=== PATIENT | female | born 1940 | race Caucasian/White ===

== ENCOUNTER 2017-11-14 12:41 | Emergency (ER) | payer OTHER ==
[~2017-11-14] VITALS: Ht 167.6 cm; Wt 81.2 kg
[~2017-11-14 12:41] MED LIST: ACETAMINOPHEN-1 EAC1 PO; AMBIEN 10 MG TA10 MG; AMBIEN 5 MG TABL5 M1 PO; BUSPAR 5 MG TABL5 M1; BUSPAR PO; BUSPAR15 MG; BUSPIRONE HCL10 MG PO; CARVEDILOL12.5 MG PO; COREG25 MG PO; COZAAR 25 MG TA25 M1 PO; DIOVAN HCT 3201 EAC1 PO; DIOVAN HCT 3201 EACH PO; DIOVAN320 MG; FLEXERIL PO; HYDROCODON-ACE1 EAC7 PO; HYDROCODON-ACE1 EACH PO; HYDROCODONE-AP1 EA11 PO; HYDROCODONE-AP1 EAC6 PO; IBUPROFEN 800800 M1 PO; KEFLEX500 MG PO; KLOR-CON 1010 MEQ PO; NAPROSYN375 MG PO; NAPROSYN500 MG PO; NORCO 5-325 TA1 EAC1 PO; NORCO 5-325 TA1 EACH PO; NORFLEX100 MG PO; ONDANSETRON HCL4 M2 PO; PERCOCET 10-321 EACH PO; PERCOCET 5-3251 EACH PO; PERCOCET 7.5-31 EACH PO; PERCOCET PO; PREDNISONE 20 M20 M1 PO; PREDNISONE50 MG PO; SKELAXIN 800 M800 M1 PO; SULAR PO; SULAR25.5 MG; SULAR34 MG; SULAR34 MG PO; TRAMADOL 50 MG50 MG PO; ULTRAM 50MG TAB50 MG PO; XANAX 0.25 MG0.25 MG PO; XANAX 0.5 MG0.5 MG PO; ZOFRAN ODT4 MG PO
[2017-11-14 13:16] LABS: ABSOLUTE LYMPHOCYTES 0.9 thou/uL (0.8-5.3); ABSOLUTE MONOCYTES 0.8 thou/uL (0.0-1.2); ABSOLUTE NEUTROPHILS 6.5 thou/uL (1.6-8.1); BASOPHILS 0.4 %; EOSINOPHILS 0.4 %; HEMATOCRIT 37.2 % (37.0-47.0); LYMPHOCYTES 10.8 %; MCH 29.4 pg (26.0-34.0); MCHC 32.3 g/dL (28.0-37.0); MONOCYTES 9.5 %; MPV 8.4 fl. (7.2-11.1); NUCLEATED RBCS 0 /100WBC; PLATELET COUNT* 308 thou/uL (150-400); POLYS 78.9 %; RBC 4.08 mil/uL (4.20-5.00); RDW-CV 15.5 % (10.5-14.5); WBC 8.3 thou/uL (4.0-11.0)
[2017-11-14 13:25] LABS: INR 1.2; PROTIME 11.3 Seconds (9.20-11.50)
[2017-11-14 13:46] LABS: ANION GAP 5 mmol/L (7-16); BUN 23 mg/dL (7-18); CALCIUM 9.2 mg/dL (8.5-10.1); CHLORIDE 102 mmol/L (98-107); CO2 26 mmol/L (21-32); CREATININE 0.6 mg/dL (0.6-1.3); GLUCOSE 104 mg/dL (70-99); SODIUM 133 mmol/L (136-145)
[2017-11-14 13:50] LABS: POTASSIUM 2.8 mmol/L (3.5-5.1)
[2017-11-14 13:50] LABS: URINE BILIRUBIN NEGATIVE (Negative); URINE BLOOD NEGATIVE (Negative); URINE CLARITY CLEAR; URINE COLOR YELLOW; URINE GLUCOSE-RANDOM NEGATIVE (Negative); URINE KETONES NEGATIVE (Negative); URINE LEUKOCYTES-REFLEX NEGATIVE (Negative); URINE NITRITE-REFLEX NEGATIVE (Negative); URINE PROTEIN TRACE (Negative)
[2017-11-14 13:56] LABS: ALBUMIN 2.9 g/dL (3.4-5.0); ALKALINE PHOSPHATASE 45 U/L (46-116); LIPASE 68 U/L (73-393); NT-PRO BRAIN NAT PEPTIDE 88 pg/mL (<300); SGOT 22 U/L (15-37); SGPT 23 U/L (30-65); TOTAL BILIRUBIN 0.3 mg/dL (<0.1-1.0); TOTAL PROTEIN 7.3 g/dL (6.4-8.2); TROPONIN-I LEVEL <0.06 ng/mL (<0.06)
[2017-11-14 14:12] LABS: INFLUENZA A ANTIGEN None Detected (None Detect); INFLUENZA B ANTIGEN None Detected (None Detect)
[2017-11-14 14:57] VITALS: BP 151/97
[2017-11-14] MEDS ORDERED: POTASSIUM20 PO (15:20)
--- NOTE | 2017-11-14 15:53 | EKG ---
[place] [address] ELECTROCARDIOGRAM REPORT Name: CHLOE CURRY CHAVEZ Room: [facility]#: [id number] Admission: 11/14/17 Attend Phys: Discharge: 11/14/17 Date of : 44 Report #: [id number] THIS REPORT FOR: //name// [facility] ED Test Date: 2017-11-14 Test Time: 12:54:16 Pat Name: CHLOE CURRY Department: Room: Gender: F Bag Loader: MS : 1940 Requested By: Rome Villarreal Order Number: [id number] MD: Palomo Larson Measurements Intervals [place] Rate: 96 P: 42 FL: 187 QRS: -18 QRSD: 112 T: 106 QT: 361 QTc: 457 Interpretive Statements Sinus rhythm LVH with IVCD and secondary repol abnrm Inferior infarct, old Compared to ECG 09/30/2016 16:15:31 Intraventricular conduction delay now present Left ventricular hypertrophy now present Early repolarization now present Myocardial infarct finding now present Electronically Signed On 11-14-2017 15:53:31 SHEET HANGER by Palomo Larson [email or web address] <ELECTRONICALLY SIGNED> By: Palomo Larson MD, FAC 11/14/17 1553 1254 [id number] Palomo Larson MD, [facility] /EPI
== END 2017-11-14 15:32 | disposition home or self-care (01) ==
LOC: M.ERS 12:41
PROVIDERS: Emergency Medicine
DX: R41.0 Disorientation, unspecified (principal); I10 Essential (primary) hypertension; M19.90 Unspecified osteoarthritis, unspecified site; Z98.890 Other specified postprocedural states; Z96.641 Presence of right artificial hip joint; Z88.8 Allergy status to other drugs, medicaments and biological substances

== ENCOUNTER 2018-02-15 16:14 | Emergency (ER) | payer OTHER ==
[~2018-02-15] VITALS: Ht 170.2 cm; Wt 82.6 kg
[~2018-02-15 16:14] MED LIST changes: +POTASSIUM20 PO
[2018-02-15 17:36] LABS: URINE BILIRUBIN NEGATIVE (Negative); URINE BLOOD NEGATIVE (Negative); URINE CLARITY CLEAR; URINE COLOR YELLOW; URINE GLUCOSE-RANDOM NEGATIVE (Negative); URINE KETONES NEGATIVE (Negative); URINE LEUKOCYTES-REFLEX NEGATIVE (Negative); URINE NITRITE-REFLEX POSITIVE (Negative); URINE PROTEIN NEGATIVE (Negative); URINE UROBILINOGEN 0.2 E.U./dl (0.2-1.0)
[2018-02-15 17:43] LABS: CASTS None Seen /LPF (None Seen); CRYSTALS None Seen /LPF (None Seen); SQUAMOUS 4-10 Moderate /LPF (0-3); URINE RBC 0-2 Rare /HPF (0-2); URINE WBC-REFLEX 0-5 Rare /HPF (0-5)
[2018-02-15] MEDS ORDERED: VALSARTAN-HCTZ1 EAC1 PO (17:52)
[2018-02-15] MEDS ORDERED: NEURONTIN 300300 M1 PO (17:52)
[2018-02-15] MEDS ORDERED: TRAMADOL 50 MG50 MG PO ×2 (17:53→18:52)
[2018-02-15] MEDS ORDERED: MIRALAX17 GM PO (17:54)
[2018-02-15] MEDS ORDERED: CIPRO250 M2 PO (18:52)
[2018-02-15 19:38] VITALS: BP 145/90
== END 2018-02-15 19:40 | disposition home or self-care (01) ==
LOC: M.ERS 16:14
PROVIDERS: Nurse Practitioner Family
DX: M54.41 Lumbago with sciatica, right side (principal); M25.551 Pain in right hip; N39.0 Urinary tract infection, site not specified; I10 Essential (primary) hypertension; G89.29 Other chronic pain; M19.90 Unspecified osteoarthritis, unspecified site; Z88.8 Allergy status to other drugs, medicaments and biological substances

== ENCOUNTER 2018-02-15 21:15 | Inpatient (IN) | payer OTHER ==
[~2018-02-15] VITALS: Ht 170.2 cm; Wt 88.3 kg
[~2018-02-15 21:15] MED LIST changes: +CIPRO250 M2 PO; +MIRALAX17 GM PO; +NEURONTIN 300300 M1 PO; +VALSARTAN-HCTZ1 EAC1 PO
[2018-02-15 21:37] VITALS: BP 182/116
[2018-02-15 22:23] LABS: HEMATOCRIT 38.1 % (37.0-47.0); HEMOGLOBIN 12.2 gm/dL (12.0-15.0); MCH 27.8 pg (26.0-34.0); MCHC 32.1 g/dL (28.0-37.0); MCV 86.4 fL (80.0-100.0); MPV 7.9 fl. (7.2-11.1); NUCLEATED RBCS 0 /100WBC; PLATELET COUNT* 405 thou/uL (150-400); RDW-CV 16.7 % (10.5-14.5); WBC 15.8 thou/uL (4.0-11.0)
[2018-02-15 22:36] LABS: CALCIUM 9.4 mg/dL (8.5-10.1); CREATININE 0.7 mg/dL (0.6-1.3); POTASSIUM 3.2 mmol/L (3.5-5.1)
[2018-02-15 22:40] LABS: ALBUMIN 2.9 g/dL (3.4-5.0); TOTAL BILIRUBIN 0.2 mg/dL (<0.1-1.0); TOTAL PROTEIN 7.6 g/dL (6.4-8.2)
[2018-02-15 23:25] VITALS: BP 181/77
[2018-02-15 23:26] VITALS: BP 168/102
[2018-02-16 00:09] LABS: ABSOLUTE EOSINOPHILS 0.2 thou/uL (0.0-0.7); ABSOLUTE LYMPHOCYTES 1.7 thou/uL (0.8-5.3); ABSOLUTE MONOCYTES 0.5 thou/uL (0.0-1.2); ABSOLUTE NEUTROPHILS 13.4 thou/uL (1.6-8.1); ANISOCYTOSIS Occasional; HYPOCHROMASIA 1+; LARGE PLATELETS OCCASIONAL; PLATELET ESTIMATE INCREASED
[2018-02-16 00:10] LABS: TOXIC GRANULATION 1+
[2018-02-16 01:11] LABS: URINE BILIRUBIN NEGATIVE (Negative); URINE BLOOD NEGATIVE (Negative); URINE CLARITY CLEAR; URINE COLOR YELLOW; URINE GLUCOSE-RANDOM NEGATIVE (Negative); URINE KETONES NEGATIVE (Negative); URINE LEUKOCYTES-REFLEX NEGATIVE (Negative); URINE PROTEIN NEGATIVE (Negative); URINE UROBILINOGEN 0.2 E.U./dl (0.2-1.0)
[2018-02-16 01:13] LABS: URINE NITRITE-REFLEX POSITIVE (Negative)
--- NOTE | 2018-02-16 01:13 | NUR ---
ASSUMED CARE OF PT AT 2315. PTS IS ALERT AND ORIENTED BUT HER BEHAVIOR IS VERY BIZARRE. PT APPEARS VERY MANIC. PT IS CONSTANTLY ASKING FOR PAIN MEDS. EVEN I AM PUTTING IV FENTANYL IN HER IV SHE ASKS, "IS THAT ALL". SOON I LEAVE THE ROOM SHE PUTS ON THE CALL LIGHT TO ASK ME FOR MORE PAIN MEDS. PTS LEGS AND FEET ARE CONSTANTLY MOVING. PTS TONGUE IS ROLLING CONTINUOUSLY. PT STATES SHE HAS NOT BEEN ABUSING ANY DRUGS. DRUG SCREEN IS PENDING. CURRENTLY, PT IS IN HER ROOM LYING DOWN. RESPIRATIONS ARE EVEN AND NONLABORED. WILL CONTINUE TO MONITOR PT.
[2018-02-16 01:16] LABS: AMP/METHAMP Negative (Negative); BARBITURATES Negative (Negative); BENZODIAZEPINES Negative (Negative); COCAINE Negative (Negative); METHADONE Negative (Negative); OPIATES Negative (Negative); PCP Negative (Negative); THC Negative (Negative)
[2018-02-16 01:58] LABS: BACTERIA-REFLEX >30 Many /HPF (None Seen); CASTS None Seen /LPF (None Seen); CRYSTALS None Seen /LPF (None Seen); MUCUS 4-6 Moderate strn/LPF (None Seen); RENAL EPITHELIAL CELLS 0-3 Few /LPF (None Seen); SQUAMOUS 0-3 Few /LPF (0-3); URINE RBC 0-2 Rare /HPF (0-2); URINE WBC-REFLEX 0-5 Rare /HPF (0-5)
[2018-02-16 08:00] VITALS: BP 163/86
[2018-02-16 17:01] VITALS: BP 144/87
--- NOTE | 2018-02-16 18:37 | NUR ---
PATINET RESTING IN BED IN ROOM. KIMBERLY HAS MULTIPLE COMPLAINTS OF PAIN TO LOWER BACK AND LEGS, TREATED WITH IV MEDICATION, PO MEDICATIONS, ANTI ANXIETY MEDICATION, WARM K PAD, AND ICE PACKS NEEDED. GRA POSITIVE COCCI IN BLOOD CULTURE BROTH PER LAB, NOTIFIED AND VANCOMYACIN IV STARTED PER ORDERS. PAITNET UP TO BSC WITH ASSIST X1. PATIET IS VERY ANXIOUS AND CONVERSATION VARY WILDLY. PATINET EDUCATED ON THE TIMING OF PAIN AND ANXIETY MEDICATIONS, PATIENT CONTINUES TO FREQUENTLY CALL OUT. TIMING OF MEDICATION WRITTEN ON WHITE BOARD FOR PATIENT REFERENCE. SEPSIS SCREENING REEVALUATED AT 18:30, STILL NEGATIVE. MITCH DUNAWAY COMPLETED FOR PATIENT SAFETY. PAITNET IS M/S STATUS.
[2018-02-16 20:00] VITALS: BP 147/68
[2018-02-17] VITALS: BP 156/94
[2018-02-17 05:15] LABS: HEMATOCRIT 37.6 % (37.0-47.0); HEMOGLOBIN 11.8 gm/dL (12.0-15.0); MCH 27.3 pg (26.0-34.0); MCHC 31.5 g/dL (28.0-37.0); MCV 86.9 fL (80.0-100.0); MPV 8.2 fl. (7.2-11.1); RBC 4.33 mil/uL (4.20-5.00); RDW-CV 16.9 % (10.5-14.5); WBC 19.7 thou/uL (4.0-11.0)
[2018-02-17 05:44] LABS: CALCIUM 9.2 mg/dL (8.5-10.1); CREATININE 0.6 mg/dL (0.6-1.3); POTASSIUM 3.6 mmol/L (3.5-5.1)
--- NOTE | 2018-02-17 07:34 | NUR ---
PATIENT WAS ORIENTED, SHOWED SIGNS OF CONFUSION SHIFT PROGRESS. PATIENT DID NOT SHOW SIGNS OF DISTRESS. PATIENT BEGAN TO SHOW SIGNS OF WEAKNESS. FALL PRECAUTIONS IN PLACE, BED ALARM ON, HOURLY ROUNDING OBSERVED.
[2018-02-17 08:00] VITALS: BP 158/106
--- NOTE | 2018-02-17 13:54 | NUR ---
CM ASSESSMENT: Pt is A&O. Resides at home alone. Pt states that she is independent with ADLS, continues to cook, clean and drive. Pt has an older walker and cane that she can use for mobility. PT worked with Pt today and recommended Pt have a new walker. CM to fax walker order to Ra[facility] once order obtained. Hx of HH. Hx of skilled at [facility]. Pt wants HH at id, [facility] following.
[2018-02-17 15:25] VITALS: BP 141/90
--- NOTE | 2018-02-17 16:35 | 2DMMODE ---
[place] [address] 2 D/M-MODE ECHOCARDIOGRAM Name: SOFIAMAGDALENOLISA PANGKvng BYRNE Room: [facility] IN [facility]#: [id number] Admission: 02/15/18 Attend Phys: Bill Douglas Discharge: Date of : 44 Date of Service: 02/17/18 1635 Report #: [id number] THIS REPORT FOR: //name// APPROVED REPORT Study performed: 02/17/2018 15:08:33 EXAM: Comprehensive 2D, Doppler, and color-flow Echocardiogram Patient Location: In-Patient Room #: 208 Status: routine BSA: 1.98 HR: 100 bpm BP: 156/106 mmHg Rhythm: NSR Other Information Study Quality: Good Indications R/O vegetation, back pain 2D Dimensions LVEF(%): 68.87 (>50%) IVSd: 10.87 (7-11mm) LVOT Diam: 23.33 (18-24mm) LVDd: 53.25 mm PWd: 10.87 (7-11mm) Ascending Ao: 39.89 (22-36mm) LVDs: 32.52 (25-40mm) Aortic Root: 33.95 mm Chan's LVEF: 68.87 % Volumes Left Atrial Volume (Systole) LA ESV Index: 33.80 mL/m2 Aortic Valve AoV Peak Oswaldo.: 3.20 m/s AO Peak Gr.: 41.02 mmHg LVOT Max P.69 mmHg AO Mean Gr.: 23.88 mmHg LVOT Mean P.79 mmHg LVOT Max V: 1.29 m/s AO V2 VTI: 53.16 cm LVOT Mean V: 0.91 m/s VICTORIA (VTI): 1.87 cm2 LVOT V1 VTI: 23.27 cm TDI Medial E' Oswaldo.: 0.07 m/[place] [address] 2 D/M-MODE ECHOCARDIOGRAM Name: CHLOE CURRY CHAVEZ Room: [address] IN .R.#: [id number] Admission: 02/15/18 Attend Phys: Bill Douglas Discharge: Date of : 44 Date of Service: 02/17/18 1635 Report #: [id number] Lateral E' Oswaldo.: 0.09 m/s Pulmonary Valve PV Peak Oswaldo.: 1.42 m/s PV Peak Gr.: 8.04 mmHg Left Ventricle The left ventricle is normal size. There is normal LV segmental wall motion. There is normal left ventricular wall thickness. Left ventricular systolic function is normal. The left ventricular ejection fraction is within the normal range. LVEF is 65%. Transmitral Doppler flow pattern suggests impaired LV relaxation. Right Ventricle The right ventricle is normal size. The right ventricular systolic function is normal. Atria The left atrium size is normal. The right atrium size is normal. Aortic Valve Mild aortic valve sclerosis. No aortic regurgitation is present. Mild aortic stenosis. Mitral Valve There is mitral annular calcification. Trace mitral regurgitation. No evidence of mitral valve stenosis. Tricuspid Valve The tricuspid valve is normal in structure. Unable to assess PA pressure. Trace tricuspid regurgitation. Pulmonic Valve The pulmonary valve is normal in structure. There is no pulmonic valvular regurgitation. Great Vessels The aortic root is normal in size. IVC is normal in size and collapses with >50% inspiration Pericardium There is no pericardial effusion. <Conclusion> The left ventricle [place] [address] 2 D/M-MODE ECHOCARDIOGRAM Name: CHLOE CURRY Room: [address] IN [facility]#: [id number] Admission: 02/15/18 Attend Phys: Bill Douglas Discharge: Date of : 44 Date of Service: 02/17/18 1635 Report #: [id number] There is normal left ventricular wall thickness. Left ventricular systolic function is normal. The left ventricular ejection fraction is within the normal range. LVEF is 65%. Transmitral Doppler flow pattern suggests impaired LV relaxation. The right ventricle is normal size. The left atrium size is normal. Mild aortic valve sclerosis. No aortic regurgitation is present. Mild aortic stenosis. There is mitral annular calcification. Trace mitral regurgitation. No evidence of mitral valve stenosis. The tricuspid valve is normal in structure. IVC is normal in size and collapses with >50% inspiration There is no pericardial effusion. There is normal LV segmental wall motion. <ELECTRONICALLY SIGNED> By: Palomo Larson MD, FACC 02/17/18 1635 1635 1635 Palomo Larson MD, FACC /INF
--- NOTE | 2018-02-17 18:43 | NUR ---
PATIENT RESTING IN BED. PATIENT IS REQUIRING FREQUENT REORIENTATION. FREQUENT PAIN MEDICATION ADMINISTRATION. VITAL SIGNS STABLE. GRAM NEG RODS IN URINE, GRAM POS COCCI IN BLLOD. ABX ORDERED AND IV FLUIDS. SR TO ST ON MONITOR. HOURLY ROUNDING FOR PATIENT SAFETY.
[2018-02-17 20:00] VITALS: BP 159/84
[2018-02-18] VITALS (7 sets, daily range): BP systolic 129–173; BP diastolic 79–94
--- NOTE | 2018-02-18 01:10 | NUR ---
RECIEVED REPORT AND ASSUMED CARE OF PATIENT AT 1930. ASSESSMENT AND VITALS COMPLETED CHARTED, VSS. PATIENT A&OX4, EXTREMELY ANXIOUS, FORGETFUL AND CONFUSED AT TIMES. PATIENT REQUIRES FREQUENT REORIENTATION AND RELAXATION REMINDERS. PATIENT WAS STILL HIGHLY ANXIOUS DESPITES HS MEDS. ORDER OBTAINED FOR ONE TIME DOSE OF IM ZYPREXA, ADMINISTERED WITH GOOD RESULTS. PATIENT IS RESTING COMFORTABLY AT THIS TIME. RANDOM BEDSIDE O2 SAT 88% ON ROOM AIR, PATIENT PLACED ON 2L NC AND SAT IMPROVED TO 94%. GOAL IS TO HAVE PAIN AND ANXIETY RELIEF AND REST COMFORTABLY FOR THE REMAINDER OF THE SHIFT. CALL LIGHT WITHIN REACH
[2018-02-18 04:08] LABS: GLYCOHEMOGLOBIN (HGB A1C) 5.9 % (4.8-5.6)
--- NOTE | 2018-02-18 04:49 | NUR ---
PATIENT NOT PROGRESSING TOWARDS GOALS: PATIENT AWAKE AT THIS TIME AND ANXIOUS AND IMPULSIVE. PATIENT'S BED ALARM GOING OFF MULTIPLE TIMES DESPITE INSTRUCTIONS TO CALL FOR ASSISTANCE. PATIENT FORGETFUL AND CONFUSED. FALL PRECAUTIONS IN PLACE. CALL LIGHT WITHIN REACH. HOURLY ROUNDING OBSERVED.
[2018-02-18 05:46] LABS: HEMATOCRIT 37.6 % (37.0-47.0); MCH 27.5 pg (26.0-34.0); MCHC 31.9 g/dL (28.0-37.0); MCV 86.1 fL (80.0-100.0); MPV 8.2 fl. (7.2-11.1); RBC 4.37 mil/uL (4.20-5.00); RDW-CV 16.9 % (10.5-14.5); WBC 11.5 thou/uL (4.0-11.0)
[2018-02-18 06:05] LABS: ALBUMIN 2.5 g/dL (3.4-5.0); CALCIUM 9.3 mg/dL (8.5-10.1); CREATININE 0.6 mg/dL (0.6-1.3); POTASSIUM 3.4 mmol/L (3.5-5.1); TOTAL BILIRUBIN 0.5 mg/dL (<0.1-1.0); TOTAL PROTEIN 6.9 g/dL (6.4-8.2)
--- NOTE | 2018-02-18 14:23 | CON ---
[address] [address] CONSULTATION Name: CHLOE CURRY Room: [address] ADM IN M.R.#: [id number] Admission: 02/15/18 Attend Phys: Bill Wilson, Discharge: Date of : 44 Report #: [id number] THIS REPORT FOR: //name// CC: JO-ANN physician/PCP Bill Wilson DATE OF SERVICE: 02/18/2018 ATTENDING PHYSICIAN: Dr. Ruiz. REASON FOR EVALUATION: Gram-positive septicemia, probable complicated urinary tract infection. HISTORY OF PRESENT ILLNESS: Chart reviewed, patient examined. This 77-year-old with known history of chronic back pain, bilateral hip replacements, who presented to the Emergency Room with lower back pain, extended up and down the torso, especially on the left gluteal side. She apparently responded to some analgesics; however, she was unable to get them filled. She returned with a 10/10 pain, subsequently admitted. As part of the evaluation, blood cultures were collected as well as urinalysis with culture. Urine did show marked bacteriuria, although not as much pyuria. Blood cultures now 2 out of 2 with Gram-positive cocci, awaiting ID and susceptibilities. She does admit to some low-grade temperature elevations. She is quite encephalopathic, perhaps acute on chronic situation, although it is not overtly delirium. She is unable to give any really details of the history. Denies shortness of breath. No significant abdominal-related complaints. It is not clear that she has been anorexic. She was empirically started on combination therapy with ceftriaxone and vancomycin. ALLERGIES: LISTED TO NICKEL. CURRENT MEDICATIONS: Include olanzapine, vancomycin, enoxaparin, gabapentin, losartan, ceftriaxone, hydrochlorothiazide, tramadol, hydrocodone, buspirone, zolpidem. PAST MEDICAL HISTORY: Chronic back pain, right total knee arthroplasty, bilateral hip arthroplasties. History of hypertension, arthritis, status post cholecystectomy, tonsillectomy, history of anxiety. SOCIAL HISTORY: Nonsmoker. Occasional ethanol. FAMILY HISTORY: Noncontributory. REVIEW OF SYSTEMS: As above. PHYSICAL EXAMINATION: [place] [address] CONSULTATION Name: CHLOE CURRYLINE Room: [address]#: [id number] Admission: 02/15/18 Attend Phys: Bill Wilson, Discharge: Date of : 44 Report #: [id number] GENERAL: She is pleasant. She is quite encephalopathic and significantly undernourished. She is in aker-wr-gqnbljan distress. VITAL SIGNS: Temperature 99.4, pulse 110, respirations 20, blood pressure 147/83. SKIN: Warm, dry, no rashes. HEENT: Unremarkable. NECK: Supple. LUNGS: Generally clear to auscultation. HEART: Regular. ABDOMEN: Soft, nontender and nondistended. GENITOURINARY AND RECTAL: Deferred. LABORATORY DATA: Urinalysis initially 0-5 white cells, 10-30 bacteria. Urine culture now with growth of greater than gram-negative rods. Imaging of the right hip showed no fracture or loosening. Electrolytes: Sodium 144, potassium 3.2, chloride 106, bicarb is 26, BUN and creatinine 16 and 0.7. Glucose of 109. LFTs unremarkable. Albumin 2.9, total protein 7.6. Estimated GFR of 82. Lactic acid 1.9. Initial CBC: White count of 15.8, H and H 12.2 and 38.1, platelets of 405. Repeat white count was 19.7, and the white count from this morning was 11.5. Electrolytes were otherwise unremarkable. AST borderline elevated at 39. Hemoglobin A1c is 5.9. Blood cultures 2/2 with Gram-positive cocci. Echo, EF of 65%, mild aortic valve sclerosis, mild stenosis of the aortic valve, trace mitral regurgitation. Chest x-ray, no acute processes. ASSESSMENT AND PLAN: Gram-positive cocci septicemia. At this point, would consider likely true positive. Continue the vancomycin for now. Per staff, she is clinically improved, although it is worrisome that she is really significantly encephalopathic. I do not think it is not acute delirium. We will consider further evaluation. Pain appears to be chronic in nature, perhaps with exacerbation. If it persists, may need to consider further evaluation to exclude occult infection. Secondly, she has urinary tract infection as well. We will continue ceftriaxone, await those results. <ELECTRONICALLY SIGNED> By: Juno Restrepo MD 02/18/18 1423 0847 [id number] Restrepo MD /nt
--- NOTE | 2018-02-18 18:56 | NUR ---
CHEYNET RESTING IN BED. EXPERIENCIN PERIOD OF SEVERE CONFUSION. FREQUENT REORIENTATION REQUIRED. PATIENT HAD SELF DC'D SEVERAL IV TODAY. [facility] REPORTS PAIN CONTROLLED WITH MEDICATIN BUT IMMEDIATLY REQUESTS MORE PAIN MEDICATION. SPOKE WITH DAUGHTER TODAY AND SHE HAS REQUESTED A WORKUP FOR DIMENTIA. HOURLY ROUNDING COMPLETED FOR PATINET SAFETY BUT PATIENT IS HAVING DIFFICULTY FOLLOWING PLAN OF CARE.
--- NOTE | 2018-02-18 20:30 | NUR ---
RECEIVED BEDSIDE REPORT AT 1930 FROM LENCHO ALBARADO. PT HAD BOTTLE OF EXEDRIN SITTING ON BEDSIDE TABLE. EXPLAINED TO PT THAT SHE COULD NOT HAVE HOME MEDICATIONS IN ROOM. SEARCHED PT PURSE FOR OTHER MEDICATIONS, NONE FOUND. BAG OF PILLS AND ONE SMALL BOTTLE OF WINE FOUND IN PT'S CLOSET.PT DENIED TAKING ANY MEDICATIONS FROM BAG OR EXEDRIN BOTTLE. PT REMINDED OF HOSPITAL POLICY AND MEDICATINS IMMEDICATELY REMOVED FROM ROOM. AT 2139, PT'S EX , ED, CAME UP TO NURSE'S STATION AND REQUESTED BAG OF MEDICATIONS. HE ADMITTED TO BRINGING PATIENT SMALL BOTTLE AND STATED HE BROUGHT IT BECAUSE PATIENT TOLD HIM SHE WAS IN PAIN SO HE THOUGHT IT WOULD HELP EASE THE PAIN. ED EDUACTED ON HOSPITAL POLICY AND ADVICED TO NOT BRING ALCOHOL AGAIN. ED VOICED UNDERSTANDING. PT'S HOME MEDICATIONS WELL WINE BOTTLE GIVEN TO ED TO TAKE HOME.
[2018-02-19] VITALS: BP 172/85
[2018-02-19 01:07] VITALS: BP 157/84
[2018-02-19 03:59] VITALS: BP 173/95
--- NOTE | 2018-02-19 04:01 | NUR ---
ASSUMED CARE OF PT AT 1930, NURSING ASSESSMENT COMPLETED AT START OF SHIFT. PT ANXIOUS, IMPULSIVE, ATTEMPTS TO CLIMB OUT OF BED AND BECOMING AGGITATED. DR. PATEL NOTIFIED OF PT BEHAVIOR, NEW ORDERS RECEIVED AT 2024. HOURLY ROUNDING COMPLETED, HIGH FALL PRECAUTIONS IN PLACE, IV FLUIDS INFUSING, CALL LIGHT WITHIN REACH.
--- NOTE | 2018-02-19 05:00 | NUR ---
AT 0441, CARDIAC MONIOTOR SHOWED PATIENT'S HR TO BE 37. PT IMMEDIATELY ASSESSED AND FOUND UNRESPONSIVE AND WITHOUT A PULSE. PT WAS ARTEAGA IN COLOR, PT NOT WEARING NASAL CANNULA. GLADYS HERNANDEZ IMMEDIATELY CALLED, CPR STARTED, AED PADS PLACED ON PATIENT. DR. STACY AND CODE TEAM RESPONDED TO CODE, NEW ORDERS RECEIVED FOR STAT ABGS, SERUM ALCOHOL. PT INTUBED IN ROOM. PT TAKEN TO ICU BED 7. FAMILY NOTIFIED OF CHANGE IN PATIENT STATUS, DAUGHTER MACIE AND EX ED. DR. PATEL ALSO NOTIFIED OF CHANGE IN PATIENT'S CONDITION.
[2018-02-19 05:03] LABS: BE -2.7 mmol/L (-2 to +3); HCO3 21.4 mmol/L (22.0-26.0); PCO2 34.4 mmHg (35.0-45.0); PO2 75.2 mmHg (75.0-100.0); pH 7.411 (7.340-7.450)
--- NOTE | 2018-02-19 06:00 | NUR ---
PT TRANSFERED FROM TELEMETRY FLOOR ON VENTILATOR, JUNCTIONAL RHTHEM, BECAME PULSELESS, DR STACY REMAINED AT BEDSIDE DURING TRANFER FROM TELEMETRY ROOM TO ICU, SEE CODE BLUE SHEET FOR FURTHER DETAILS, TERRY ARRIVED TO ICU FLOOR WHILE CODE BLUE IN PROGRESS, DR STACY UPDATED FAMILY PTS CURRENT CONDITION, PER FAMILY REQUEST AND DR STACY CODE STOPPED, TOD 0597, EMOTIONAL SUPPORT PROVIDED FOR FAMILY, BODY PREPARED FOR HOME PER POLICY.
--- NOTE | 2018-02-28 15:15 | EKG ---
[place] [address] ELECTROCARDIOGRAM REPORT Name: CHLOE CURRY Room: [address] DIS IN M.R.#: [id number] Admission: 02/15/18 Attend Phys: Bill Wilson, Discharge: 02/19/18 Date of : 44 Report #: [id number] THIS REPORT FOR: //name// [facility] Test Date: 2018-02-19 Test Time: 05:16:16 Pat Name: CHLOE CURRY Department: Room: [address] Gender: Hand Stonecutter: : 1940 Requested By: Teri Zheng Order Number: [id number] Johanna MD: Giovani Reza Measurements Intervals [place] Rate: P: UT: QRS: QRSD: T: QT: QTc: Interpretive Statements Idioventricular rhythm Nonspecific intraventricular conduction delay Nonspecific ST-T wave abnormalities Abnormal EKG Compared to ECG 11/14/2017 12:54:16 Sinus rhythm no longer present Electronically Signed On 02-28-2018 15:15:23 CDT by Giovani Reza [email or web address] <ELECTRONICALLY SIGNED> By: Giovani Reza MD, [facility] 02/28/18 1515 0516 Giovani Reza MD, [facility] /EPI
== END 2018-02-19 07:00 | DRG 871 ==
LOC: M.ERS 21:15 → M.2W 22:01 → M.TBA-ER 22:01 → M.2W 22:16 → M.ICU 02-19 06:36
PROVIDERS: Internal Medicine; Nurse Practitioner Family; Personal Emergency Response Attendant; ADMIT Family Medicine
PROC: B24BZZ4 Ultrasonography of Heart with Aorta, Transesophageal (ICD-10-PCS; principal; 2018-02-17)
DX: A41.9 Sepsis, unspecified organism (principal); G92 Toxic encephalopathy; N39.0 Urinary tract infection, site not specified; E44.1 Mild protein-calorie malnutrition; I10 Essential (primary) hypertension; M19.90 Unspecified osteoarthritis, unspecified site; E87.6 Hypokalemia; R73.9 Hyperglycemia, unspecified; D72.829 Elevated white blood cell count, unspecified; M54.9 Dorsalgia, unspecified; Z96.651 Presence of right artificial knee joint; Z96.643 Presence of artificial hip joint, bilateral; Z68.30 Body mass index [BMI] 30.0-30.9, adult; Z90.49 Acquired absence of other specified parts of digestive tract; Z79.899 Other long term (current) drug therapy; Z88.8 Allergy status to other drugs, medicaments and biological substances